=== PATIENT | male | born 1955 | race Caucasian/White ===

== ENCOUNTER 2024-09-27 13:06 | Inpatient (IN) | payer OTHER, SELFPAY ==
[2024-09-27] VITALS (7 sets, daily range): BP systolic 145–195; BP diastolic 90–114; PULSE 79–97; RESP 16–98; TEMP 36.1–37.1; O2SAT 96–97
--- NOTE | 2024-09-27 | XR_ITS ---
Examinations: MRI Brain without intravenous contrast. MRA brain without intravenous contrast. MRA carotids without intravenous contrast 3-D vascular reconstructions Date and time of exam: September 27, 2024 0631 hours INDICATIONS: Stroke alert September 27, 2024, onset focal neurologic deficit Technique: Multiple axial and sagittal images of the brain have been obtained MRA brain carotid images without contrast obtained, including 3-D postprocessing, vascular maximum intensity projection images Findings: Sellaturcica is not enlarged. The optic chiasm and infundibular stalk are not remarkable. Prepontine and interpeduncular cisterns are not enlarged. No localized enlargement of the medulla or norma. Fourth ventricle and cerebellar tonsils normal in position. Subacute hemorrhage is not seen. Fourth ventricle is midline. Mass in the cerebellopontine angle region is not evident. 7th and 8th nerve complexes exhibits symmetry. Globes are symmetrical with no retro-orbital mass. Increased white matter signal prominent Diffusion-weighted images demonstrate 18 mm focus restricted diffusion left parietal lobe with matching signal deficit on the ADC map Mass-effect upon the ventricular system is not identified. MRA brain images no large vessel occlusions Impression: 18 mm acute infarct left parietal lobe
--- NOTE | 2024-09-27 13:17 | PD.EDWEAK ---
ED Weakness RME/HPI General Chief complaint: Weakness Stated complaint: Right facial droop right arm weakness Time Seen by Provider: 09/27/24 13:18 Arrival date/time: 09/27/24 13:06 Limitations: no limitations RME / HPI RME / HPI Narrative: 68 year old male who is s/p right ORIF otherwise no other chronic medical history, right hand dominant, presents to the ED for evaluation of right-sided upper/lower extremity weakness and right facial numbness today. States he first noticed the symptoms around 8:15 AM while reaching for toilet paper in the restroom and having difficulty grasping it, lasting 45 minutes. Denies any change in balance or speech. Denies any history of similar symptoms. Related Data Allergies Allergy/AdvReac Type Severity Reaction Status Date / Time No Known Drug Allergies Allergy Verified 09/27/24 13:09 Review of Systems Review of Systems Systems Reviewed: All systems reviewed, normal except as documented Past Medical History Past Medical History CARDIAC: Negative Congestive Heart Failure RESPIRATORY: Negative Chronic Obstructive Pulmonary Disease (COPD) GENITOURINARY: Negative Renal Disease ENDOCRINE: Negative Diabetes Mellitus Type 1 or Diabetes Mellitus Type 2 Family History FAMILY HISTORY: Positive Family Cardiac Disorders and Family Endocrine Disorders; Negative Family Cancer Social History SMOKING STATUS: Former smoker ED Exam General Limitations: Present no limitations General appearance: Present alert and in no apparent distress Head Head exam: Present atraumatic and normocephalic Eye Eye exam: Present normal appearance, PERRL and EOMI ENT ENT exam: Present normal exam, normal oropharynx and mucous membranes moist Neck Neck exam: Present normal inspection, full ROM and trachea midline Chest Chest inspection: Present normal inspection and symmetric chest wall rise Respiratory Respiratory exam: Present normal lung sounds bilaterally Cardiovascular Cardiovascular exam: Present regular rate, normal rhythm and normal heart sounds Abdominal Exam Abdominal exam: Present soft and normal bowel sounds Extremities Exam Extremities exam: Present normal inspection and full ROM Back Exam Back exam: Present normal inspection and full ROM Neurological Exam Neurological exam: Present alert, oriented X3 and other (mild right facial droop ) Psychiatric Psychiatric exam: Present normal affect and normal mood Skin Skin exam: Present warm, dry, intact and normal color Course Quality Measures Suspected type of Stroke: Non Acute Last known well (date): 09/27/24 Last known well (time): 08:15 Tenecteplase given: Reason(s) TPA not given: Outside the time window not given stroke Orders Category Date Time Status Bedside Blood Glucose NOW Care 09/27/24 13:18 Active COVID-19 Screening Questionnaire NOW Care 09/27/24 15:23 Active Facility Designer NOW Care 09/27/24 13:18 Active Continuous Pulse Oximetry NOW Care 09/27/24 13:18 Completed Decision to Admit X1 Care 09/27/24 15:23 Active EKG (ED ONLY) *Do not use* NOW Care 09/27/24 13:18 Completed In and Out Catheter NEEDED Care 09/27/24 13:18 Active Insert IV NOW Care 09/27/24 13:18 Active NIH Stroke Scale now Care 09/27/24 13:18 Active NPO NOW Care 09/27/24 13:18 Active Neuro Check Q15MIN Care 09/27/24 13:18 Active Nurse Swallow Screen x1 Care 09/27/24 13:18 Active Consult to Neurology / Tele-Neurology Routine Cons 09/27/24 13:[address] angio stroke protocol Stat Exams 09/27/24 13:[address] stroke protocol Stat Exams 09/27/24 13:18 Completed EKG (ED Only) Stat Exams 09/27/24 13:18 Draft Alcohol, Blood Medical Stat Lab 09/27/24 13:22 Completed B-Type Natriuretic Peptide Stat Lab 09/27/24 13:22 Completed CBC Stat Lab 09/27/24 13:22 Completed Comprehensive Metabolic Panel Stat Lab 09/27/24 13:22 Completed Drug Screen,Urine Stat Lab 09/27/24 14:06 Completed Magnesium Stat Lab 09/27/24 13:22 Completed Partial Thromboplastin Time Stat Lab 09/27/24 13:22 Completed Prothrombin Time with INR Stat Lab 09/27/24 13:22 Completed Troponin I Stat Lab 09/27/24 13:22 Completed Urinalysis Stat Lab 09/27/24 14:06 Completed Urine Culture Stat Lab 09/27/24 14:06 Received Aspirin [Ecotrin] Med 09/27/24 15:01 Discontinued 162 mg PO X1 ONE Clopidogrel [Plavix] Med 09/27/24 15:01 Discontinued 300 mg PO X1 ONE Ondansetron Inj [Zofran Inj] Med 09/27/24 13:18 Active 4 mg IVP Q4HR PRN Sodium Chloride 0.9% 1000 ml [Ns] 1,000 ml Med 09/27/24 13:30 Active IV Q10H Oxygen Delivery NOW RT 09/27/24 13:18 Active Vital Signs Vital signs: Vital Signs Temperature 98.8 F 09/27/24 13:14 Pulse Rate 97 09/27/24 13:14 Respiratory Rate 18 09/27/24 13:14 Blood Pressure 195/107 H 09/27/24 13:14 Pulse Oximetry (%) 97 09/27/24 13:14 Oxygen Delivery Method Room Air 09/27/24 13:14 Pulse ox is 97% on room air which is adequate. Weakness MDM Narrative MDM Narrative:: Crystal Peterson am scribing for and in the presence of Dr. Andrade. Patient data External records reviewed:: None (No previous ED visits for review ) Clinical information provided by:: patient Social determinants that could affect healthcare access:: none Patient has the following chronic illnesses:: No chronic medical hx reported How is presenting disease/condition affected by chronic disease/condition?: no chronic disease Evaluation data The following diagnostics were reviewed and interpreted by me:: lab results, radiology exam(s) and EKG tracing(s) (09/27/2024 @ 14:03h. NSR, rate 83, left anterior fascicular block, no STEMI. ) Lab and/or radiology exams considered but not ordered:: None Interpretation Summary: Ordering Physician: Leandro Andrade MD Date of Service: 09/27/24 Procedure(s): CT stroke protocol Accession Number(s): [id number] cc: Leandro Andrade MD; Mariano Chavez MD~ Examination: CT brain head without contrast. 2-D sagittal coronal reconstructions Date and time of exam:September 27, 2024 1328 hours INDICATIONS: Stroke alert, onset focal neurologic deficit right-sided facial numbness and right-sided body weakness beginning 8:30 AM this morning CTDI: vol (mGy):7.9 DLP: (mGycm):973 Technique: Multiple CT axial sections of the brain have been obtained, 5 mm slice thickness. Contrast has not been administered. 2-D sagittal, coronal reconstructions have been obtained Low dose protocols were performed. One or more of the following dose reduction techniques were used; automated exposure control, adjustment of the mA and/or KV according to patient size, use of iterative reconstruction technique. Findings: No significant ventricular enlargement. Intra-axial or extra-axial hemorrhage density is not seen. No mass effect or midline shift Basal cisterns are not remarkable. Fourth ventricle is midline. Cranial vault intact. Impression: Negative for acute hemorrhage, mass effect or midline shift Dictated By: Mariano Chavez MD Signed By: <Electronically signed by Mariano Chavez MD in OV> 09/27/24 1331 Ordering Physician: Leandro Andrade MD Date of Service: 09/27/24 Procedure(s): CT angio stroke protocol Accession Number(s): [id number] cc: Leandro Andrade MD; Mariano Chavez MD~ Examination: CTA carotids with intravenous contrast CTA brain, head with intravenous contrast. 2-D sagittal, coronal reconstructions. 3-D reconstructions. Exam date and time: September 25, 2024 1331 hours INDICATIONS: Stroke alert, onset right-sided facial weakness and right-sided body and facial numbness today beginning 8:30 AM CTDI: vol (mGy) 21.1 DLP: (mGycm) 171 Technique: Multiple CTA axial brain, head carotid images post intravenous contrast injection 100 cc, [id number]. 2-D sagittal, coronal reconstructions. 3-D reconstructions, 3-D post processing including vascular maximum intensity projection images. Low dose protocols were performed. One or more of the following dose reduction techniques were used; automated exposure control, adjustment of the mA and/or KV according to patient size, use of iterative reconstruction technique. Findings: No significant common carotid carotid bifurcation or internal carotid artery stenoses Minimally dominant left vertebral artery with no critical stenoses Intracranial vertebral arteries basilar artery posterior cerebral artery branches do fill Juxtasellar supraclinoid portions internal carotid arteries, M1 segments middle cerebral arteries middle cerebral artery trifurcation vessels as well as anterior cerebral arteries fill with no large vessel occlusions IMPRESSION: No significant neck arterial stenoses No cerebral large vessel arterial occlusions or thrombus Dictated By: Mariano Chavez MD Signed By: <Electronically signed by Mariano Chavez MD in OV> 09/27/24 1402 Medications / Prescriptions Medications or Prescriptions considered but not ordered:: None Medication administrations:: Medication Administration History Sodium Chloride (Ns) 1,000 mls @ 60 mls/hr IV Q10H RYAN Stop: 10/27/24 13:29 Last Admin: 09/27/24 14:16 Dose: 60 mls/hr Documented By: GM Ondansetron HCl (Ondansetron Inj 2 Mg/Ml Inj 2 Ml) 4 mg IVP Q4HR PRN PRN Reason: NAUSEA OR VOMITING Stop: 10/27/24 13:17 Discontinued Medications Aspirin (Aspirin Ec 81 Mg Tabec) 162 mg PO X1 ONE Stop: 09/27/24 15:02 Clopidogrel Bisulfate (Clopidogrel Bisulfate 75 Mg Tablet) 300 mg PO X1 ONE Stop: 09/27/24 15:02 See above Consultations Consultation(s) initiated? (list below): Yes Consultation #1 (Physician, Specialty, Details): I spoke with teleneurologist Dr. Jackson, states patient is not a TNK candidate at this time, LKWT > 4.5 hours. Time: 14:42 Diagnosis Weakness Differential Diagnosis: hypoglycemia, sepsis and dehydration Most likely diagnosis given after review of the tests above:: Acute CVA Accelerated hypertension Admission Indicated Admission indicated?: indicated Admission Request Was there a request for admission?: Yes Admission Attestation Admission request attestation: Discussed case with [] from Hospitalist service regarding admission. Discussed patients ED course, exam findings, labs, and radiology results. The Hospitalist [agrees,declines] to accept the patient for admission. Disposition Plan Disposition Plan: Admit Critical Care Time Critical Care Time Critical Care Time: Yes Total Critical Care Time (min.): 35 Attestation: The high probability of sudden, clinically significant deterioration in the patient's condition required the highest level of my preparedness to intervene urgently. The services I provided to this patient were to treat and/or prevent clinically significant deterioration. Services included the following: chart data review, reviewing nursing notes and/or old charts, documentation time, training consultant collaboration regarding findings and treatment options, medication orders and management, direct patient care, vital sign assessments and ordering, interpreting and reviewing diagnostic studies and lab tests. Aggregate critical care time includes only time during which I was engaged in work directly related to the patient's care, as described above, whether at bedside or elsewhere in the Emergency Department. It did not include time spent performing other reported procedures or the services of residents, students, nurses or physician assistants. Discharge Plan Plan Patient Disposition: Admit Acute Care w/in Hospital Prescriptions/Referrals Referrals: No Primary/Family,Physician [Primary Care Provider] - In 1 week Problem List Clinical Impression: Acute cerebrovascular accident (CVA), Accelerated hypertension Patient/Caregiver Discharge Instructions Print Language: Tristanian Stand Alone Forms: Oksana Award Info., Patient Portal Info Letter
--- NOTE | 2024-09-27 13:18 | EKG_ITS ---
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
[2024-09-27 13:41] LABS: Basophils # (Auto) 0.0 Thou/mm3 (0.0-0.2); Basophils % (Auto) 1 % (0-2.5); Eosinophils # (Auto) 0.1 Thou/mm3 (0.0-0.5); Eosinophils % (Auto) 1 % (0-10); Hematocrit 45.5 % (41.0-53.0); Hemoglobin 15.3 g/dL (13.5-16.0); Immature Granulocytes Auto 0.02 Thou/mm3 (0.00-0.00); Lymphocytes # (Auto) 2.0 Thou/mm3 (1.0-4.8); Lymphocytes % (Auto) 25 % (10-50); Mean Corpuscular HGB Conc 33.6 g/dl (31.0-37.0); Mean Corpuscular Hemoglobin 31.2 pg (25.0-35.0); Mean Corpuscular Volume 93 fL (80-100); Monocytes # (Auto) 0.4 Thou/mm3 (0.0-0.8); Monocytes % (Auto) 5 % (0-12); Neutrophils # (Auto) 5.2 Thou/mm3 (1.8-7.7); Neutrophils % (Auto) 68 % (37-80); Nucleated Red Blood Cell # 0.00 Thou/mm3 (0.00-0.00); Nucleated Red Blood Cell % 0 /100 WBC (0); Platelet Count 270 Thou/mm3 (140-440); RDW Standard Deviation 46.2 fL (35.1-43.9); Red Blood Count 4.90 Miln/mm3 (4.50-5.90); White Blood Count 7.7 Thou/mm3 (3.8-10.6)
[2024-09-27 13:55] LABS: INR 1.0 (0.9-1.3); Partial Thromboplastin Time 27.1 Seconds (22.0-36.0); Prothrombin Time 11.2 Seconds (9.0-12.2)
[2024-09-27 13:58] LABS: B-Type Natriuretic Peptide 56 pg/mL (0-100)
[2024-09-27 14:13] LABS: Alanine Aminotransferase 19 U/L (10-49); Albumin, Serum 4.5 gm/dL (3.4-4.8); Albumin/Globulin Ratio 1.9 (1.2-2.2); Alcohol, Blood Medical < 3.0 mg/dL (0-10.0); Alkaline Phosphatase 68 U/L (46-116); Anion Gap 13 (7-16); Aspartate Amino Transferase 18 U/L (0-34); BUN/Creatinine Ratio 10 Ratio (12-20); Bilirubin,Total 1.0 mg/dL (0.3-1.2); Blood Urea Nitrogen 7 mg/dL (9-23); Calcium 10.0 mg/dL (8.3-10.6); Calcium (Corrected) 10.0 mg/dL (8.5-10.1); Carbon Dioxide 23.4 mMol/L (20.0-31.0); Chloride 105 mMol/L (98-107); Creatinine (Component) 0.7 mg/dL (0.6-1.3); Globulin 2.4 gm/dL (2.3-3.5); Glucose 123 mg/dL (74-106); Magnesium 1.7 mg/dL (1.6-2.6); Osmolality,Calculated 280 (275-295); Potassium 3.6 mMol/L (3.4-5.1); Sodium 141 mMol/L (136-145); Total Protein 6.9 gm/dL (5.7-8.2); Troponin I < 0.020 ng/mL (0.0-0.045); eGFR > 60 See Note
[2024-09-27] MEDS: SODIUM CHLORIDE 0.9% 1000 ML 1,000 ML 60 ML IV (14:16)
[2024-09-27 14:17] LABS: Collection Type, Urine Catheter; Squamous Epithelial Cell,Urine 0 /hpf (0-5)
[2024-09-27 14:29] LABS: Amphetamine/Methamp Scrn,U Negative (Negative); Barbiturate Screen,Urine Negative (Negative); Benzodiazepines Screen,Urine Negative (Negative); Benzoylecgonine Screen, Ur Negative (Negative); Fentanyl Screen,Urine Negative (Negative); Opiate Screen,Urine Negative (Negative); THC Screen,Urine Negative (Negative)
--- NOTE | 2024-09-27 14:43 | PD.TNEURO ---
Tele Neuro Consultation Consultation Date 09/27/24 Most Recent Vital Signs Last Vital Signs Temp 98.8 F 09/27/24 13:14 Pulse 94 09/27/24 13:46 Resp 19 09/27/24 13:46 BP 195/107 H 09/27/24 13:14 Pulse Ox 97 09/27/24 13:14 O2 Del Method Room Air 09/27/24 13:14 Laboratory-Coagulation Panel PT 11.2 Seconds (9.0-12.2) 09/27/24 13:22 INR 1.0 (0.9-1.3) 09/27/24 13:22 APTT 27.1 Seconds (22.0-36.0) 09/27/24 13:22 Consultation Narrative [facility] Tele[facility]urology Consult [facility] Patient Name:???jessica ely Date of :???1955 Date of Service:???09/27/2024 13:28:47 Diagnosis:?R29.810 - Facial numbness/ Facial weakness Impression: ?Patient is a 68-year-old male with unclear past medical history is being evaluated for concerns of right-sided weakness. ? ?Presents with an acute onset of right upper extremity/face weakness. Last well-known is a 10 AM this morning. ?On exam there is mild right-sided facial droop at rest which resolves when the muscles are engaged. Mild right-sided pronator drift noticed. ?Head CT read is unremarkable for any acute intracranial findings. ? ?Suspicion is for an acute ischemic event involving the left frontoparietal lobe. ?Last well-known greater than 4-1/2 hours, patient is not an IV thrombolytic candidate. ?Loaded with aspirin 325 mg, Plavix 300 mg. ?Allow permissive hypertension up to a systolic of 220. ?Please obtain MRI brain without contrast. Our recommendations are outlined below. Recommendations: ? Stroke/Telemetry Floor ? Neuro Checks ? Bedside Swallow Eval ? DVT Prophylaxis ? IV Fluids, Normal Saline ? Head of Bed 30 Degrees ? Euglycemia and Avoid Hyperthermia (PRN Acetaminophen) ? Initiate or continue Aspirin 325 MG daily ? Bolus with Clopidogrel 300 mg bolus x1 and initiate dual antiplatelet therapy with Aspirin 81 mg daily and Clopidogrel 75 mg daily ? Antihypertensives PRN if Blood pressure is greater than 220/120 or there is a concern for End organ damage/contraindications for permissive HTN. If blood pressure is greater than 220/120 give labetalol PO or IV or Vasotec IV with a goal of 15% reduction in BP during the first 24 hours. ?Suspicion is for an acute ischemic event involving the left frontoparietal lobe. ?Last well-known greater than 4-1/2 hours, patient is not an IV thrombolytic candidate. ?Loaded with aspirin 325 mg, Plavix 300 mg. ?Allow permissive hypertension up to a systolic of 220. ?Please obtain MRI brain without contrast. Sign Out: ? Discussed with Emergency Department Provider Advanced Imaging:CTA Head and Neck Completed. LVO:No Patient is not a candidate for EMILIANA Metrics: Last Known Well: 09/27/2024 08:10:00 Dispatch Time: 09/27/2024 13:28:47 Arrival Time: 09/27/2024 13:31:15 Initial Response Time: 09/27/2024 13:35:43Symptoms: R sided facial droop / arm weakness. Initial patient interaction: 09/27/2024 13:43:36 NIHSS Assessment Completed: 09/27/2024 13:50:24Patient is not a candidate for Thrombolytic. Thrombolytic Medical Decision: 09/27/2024 13:55:33Patient was not deemed candidate for Thrombolytic because of following reasons: LKW outside 4.[address] Head: CT head unremarkable for acute infarction or hemorrhage per Radiology: report reviewed Primary Provider Notified of Diagnostic Impression and Management Plan on: 09/27/2024 14:42:34 History of Present Illness:Patient is a 68 year old Male. Patient was brought by private transportation with symptoms of R sided facial droop / arm weakness. Patient is a 68-year-old male with unclear past medical history is being evaluated for concerns of right-sided weakness. Patient mentions that he was seemingly normal when he woke up at 615 this morning. At around 8 AM he was drinking his coffee with his right hand and he did not notice any weakness. At around 8:15 AM when he was trying to cotton picker something in the restroom he noticed that his right hand is weak. And he was dropping. At that time his family also noticed that his face looked asymmetric. He states that he has a history of migraines. 2 weeks back he noticed that the left side of his vision got blacked out. Slowly returned. However he is still saying that there is 1 part in his field of vision which appears missing. ? Past Medical History: ?There is no history of Hypertension ?There is no history of Diabetes Mellitus ?There is no history of Atrial Fibrillation Medications: No Anticoagulant use? No Antiplatelet use Reviewed EMR for current medications Allergies:? Description:?As per chart Social History: Smoking: No Family History: There is no family history of premature cerebrovascular disease pertinent to this consultation ROS : 14 Points Review of Systems was performed and was negative except mentioned in HPI. Past Surgical History: There Is No Surgical History Contributory To Today?s Visit ? Examination: BP(195/107),?Pulse(98),?Blood Glucose(123) 1A: Level of Consciousness - Alert; keenly responsive?+ 0 1B: Ask Month and Age - Both Questions Right?+ 0 1C: Blink Eyes & Squeeze Hands - Performs Both Tasks?+ 0 2: Test Horizontal Extraocular Movements - Normal?+ 0 3: Test Visual Ng - No Visual Loss?+ 0 4: Test Facial Palsy (Use Grimace if Obtunded) - Minor paralysis (flat nasolabial fold, smile asymmetry)?+ 1 5A: Test Left Arm Motor Drift - No Drift for 10 Seconds?+ 0 5B: Test Right Arm Motor Drift - Drift, but doesn't hit bed?+ 1 6A: Test Left Leg Motor Drift - No Drift for 5 Seconds?+ 0 6B: Test Right Leg Motor Drift - No Drift for 5 Seconds?+ 0 7: Test Limb Ataxia (FNF/Heel-Hooper) - No Ataxia?+ 0 8: Test Sensation - Normal; No sensory loss?+ 0 9: Test Language/Aphasia - Normal; No aphasia?+ 0 10: Test Dysarthria - Normal?+ 0 11: Test Extinction/Inattention - No abnormality?+ 0 NIHSS Score:?2 Pre-Morbid Modified [place] Scale:1 Points = No significant disability despite symptoms; able to carry out all usual duties and activities Spoke with :?ED Provider This consult was conducted in real time using interactive audio and video technology. Patient was informed of the technology being used for this visit and agreed to proceed. Patient located in hospital and provider located at home/office setting. Patient is being evaluated for possible acute neurologic impairment and high probability of imminent or life-threatening deterioration. I spent total of 39 minutes providing care to this patient, including time for face to face visit via telemedicine, review of medical records, imaging studies and discussion of findings with providers, the patient and/or family. Dr Rei Jackson [facility] For Inpatient follow-up with [facility] physician please call [facility] at . As we are not an outpatient service for any post hospital discharge needs please contact the hospital for assistance. If you have any questions for the [facility] physicians or need to reconsult for clinical or diagnostic changes please contact us via [facility] at . Signature :John Jackson ?
[2024-09-27 15:17] LABS: Bilirubin,Urine Negative (Negative); Blood,Urine Negative (Negative); Clarity,Urine Clear (Clear/Hazy); Color,Urine Colorless (Lt Yel-Yel); Glucose, Urine Negative (Negative); Ketones,Urine 1+ (Negative); Leukocyte Esterase,Urine Negative (Negative); Nitrite,Urine Negative (Negative); PH,Urine 7.0 (5.0-7.0); Protein,Urine Negative (Neg - Trace); RBC,Urine 1 /hpf (0-3); Specific Gravity,Urine 1.046 (1.001-1.035); Urobilinogen,Urine Negative mg/dL (0.0-1.0); WBC,Urine < 1 /hpf (0-5)
--- NOTE | 2024-09-27 15:58 | ECHO_ITS ---
Transthoracic Echo Report Ht (in): 67 Wt (lb): 197 Exam Location: Echo Lab Status: Emergency Cath Lab Nurse: Florence Bermudez Indications: Procedure Performed: BP: 175 / 100 HR: 99 MEASUREMENTS (Male / Female) Normal Values 2D ECHO LV Diastolic Diameter PLAX 4.9 cm 4.2 - 5.9 / 3.9 - 5.3 cm LV Systolic Diameter PLAX 3.6 cm IVS Diastolic Thickness 1.0 cm 0.6 - 1.0 / 0.6 - 0.9 cm LVPW Diastolic Thickness 1.5 cm 0.6 - 1.0 / 0.6 - 0.9 cm LV Relative Wall Thickness 0.5 LVOT Diameter 2.1 cm LA Volume Index 30.2 cm?/m? 16 - 28 cm?/m? Ascending Aorta Diameter 3.2 cm M-MODE AV Cusp Separation MM 1.5 cm DOPPLER AV Peak Velocity 133.0 cm/s AV Peak Gradient 7.1 mmHg AV Mean Gradient 4.0 mmHg AV Velocity Time Integral 26.9 cm AI Peak Velocity 299.0 cm/s AI Peak Gradient 35.8 mmHg AI Pressure Half Time 955.0 ms LVOT Peak Velocity 88.3 cm/s LVOT Peak Gradient 3.1 mmHg LVOT Velocity Time Integral 19.4 cm LVOT Cardiac Index 3194.0 cm?/min?m? AV Area Cont Eq vti 2.5 cm? AV Area Cont Eq pk 2.3 cm? MV Area PHT 4.7 cm? Mitral E Point Velocity 46.0 cm/s Mitral A Point Velocity 75.2 cm/s Mitral E to A Ratio 0.6 LV E' Lateral Velocity 12.0 cm/s Mitral E to LV E' Lateral Ratio 3.8 LV E' Septal Velocity 5.9 cm/s Mitral E to LV E' Septal Ratio 7.8 TR Peak Velocity 155.0 cm/s TR Peak Gradient 9.6 mmHg PV Peak Velocity 109.0 cm/s PV Peak Gradient 4.8 mmHg FINDINGS Left Ventricle Normal left ventricular size, wall thickness, systolic function with no obvious regional wall motion abnormalities. There is grade I diastolic dysfunction of the left ventricle (impaired relaxation pattern). The ejection fraction is visually estimated at 55--60%. Right Ventricle The right ventricle is normal in size and systolic function. The estimated right ventricular systolic pressure, 12 mmHg. Left Atrium The left atrial cavity size is mildly increased. Right Atrium The right atrium is normal by two-dimensional imaging, color flow and Doppler imaging with no structural abnormalities, no thrombus formation present. Atrial Septum The interatrial septum appears normal with no evidence of a shunt. Aorta The aorta is normal by two-dimensional, color flow and Doppler interrogation. Mitral Valve The mitral valve is normal by two-dimensional, color flow and Doppler interrogation. Mild mitral regurgitation. Aortic Valve The aortic valve is trileaflet and normal by two-dimensional, color flow and Doppler interrogation. Mild aortic valve regurgitation. Tricuspid Valve The tricuspid valve is normal by two-dimensional, color flow and Doppler interrogation. There is mild tricuspid valve regurgitation. Pulmonic Valve The pulmonic valve is not well visualized. There is no significant pulmonic valve regurgitation. Vessels The pulmonary artery appears normal. The inferior vena cava pulmonary and hepatic veins appear normal. Pericardium The pericardium is normal by two-dimensional imaging. There is no significant pericardial effusion. CONCLUSIONS Indication: CVA workup Normal LV function and size. Grade I diastolic dysfunction Estimated EF 55-60% RV normal size and function Mild MR, AR, TR LA mildly dilated. Micha Toscano (Electronically Signed) Final Date: 29 September 2024 08:24
--- NOTE | 2024-09-27 16:08 | ESHP_ITS ---
<Statement entered by Ace Umana MD - 09/27/24 20:08> Patient was seen and examined at bedside. I agree on the assessment and plan on this note as documented by resident Stefan Valdez DO PGY1. 68-year-old male with past medical history of migraines who presented to [facility] emergency department on September 27, 2024 with a chief complaint of right-sided weakness in upper extremity and right-sided facial droop. Patient does report history of complex migraines, has never been seen by a neurologist or received MRI outpatient. Patient reported that he recently took Zyrtec causing him to have migraine about 2 weeks ago and left side of his vision, blacked out. Reported that earlier this morning he had right upper extremity weakness and right-sided facial droop. Patient took 2 baby aspirin this morning after having these episodes, patient was seen by teleneuro in ED, recommended MRI due to concern of underlying frontal parietal lobe ischemic event, patient initially hesitant for admission eventually agreed. CT scan of head and CTA head and neck were negative, patient given aspirin 162 and loading dose Plavix started on aspirin and Plavix daily per teleneurology recommendations, patient started on Lipitor, n.p.o. pending bedside nurse swallow ordered physical therapy and speech therapy referral. Will allow permissive hypertension for 24 hours. In-house neurology consulted appreciate recommendations disposition telemetry pending CVA workup. Case discussed with attending Dr. Michelle Christianson MD Internal Medicine PGY-2 Documentation for date of: 09/27/24 HPI History of Present Illness Chief complaint: RUE weakness History of present illness: Mr. Baez is a 68-year-old male with a past medical history of migraines who presented to [facility] ED on 09/27 with complaints of right-sided weakness and right facial droop. The patient was admitted for CVA workup. The patient symptoms began at around 8 AM this morning. Initially began with acute right-sided weakness in arms with right facial droop and numbness in his right lip. Symptoms then started to recover after about an hour, so the patient went about his day as usual. However, the patient had another episode of right- sided weakness in his arms and right facial droop with numbness in his right lip at around 10 or 10:30 AM, but it was not as severe as the initial episode. Over time, his right-sided weakness has been improving. The patient states that his right doper operator strength has returned to normal while he was waiting in the ED. Patient believes that this might be possibly a complex migraine, however he has never had a migraine like this in the past and was not actively having a migraine during these episodes. Patient denies any headache during these episodes. Patient does endorse an electrical feeling in his right vision, which he describes as neither blurry vision nor floaters in his vision. Due to the patient's having her birthday tomorrow, the patient would like to leave tonight or early tomorrow. Patient does endorse episodes of skipped heartbeats, but has never sought care from a clinical psychologist licensed. Patient denies history of atrial fibrillation. Patient denies any history of hypertension, but does note he has a history of whitecoat syndrome during doctor visits. Patient's most recent pressure readings prior to today were noted to be around the 130s/80s. Patient denies headache, changes in hearing, changes in vision, shortness of breath, cough, chest pain, abdominal pain. Patient took 2 baby aspirin this morning after having these episodes ED course: On admission, patient had a blood pressure of 195/107. Troponin negative. BNP 56. Urinalysis significant for increased specific gravity and 1+ ketones. Urine toxicology negative and blood alcohol less than 3.0. Urine culture collected. Teleneurology was consulted. Recommended CT head and CTA head/neck, both of which were negative for acute stroke. Patient not candidate for thrombolytic therapy due to being outside 4.5-hour window for last known well. Past Surgical History: R ORIF Current Medication(s): N/A Allergies (w/ Reactions): NKDA Family History: - Mother:?T2DM, heart attacks - Father:?Aortic aneurysm - Siblings:?Breast cancer (sibling) Occupation:?Retired Alcohol Intake:?1 drink nightly Tobacco/Vape Use:?Quit 50 years ago, smoked unspecified amount for 2 years Other Drug Use:?Patient denies Recent Travel History:?[place] 1 month ago Review of Systems Review of Systems Systems Reviewed: All systems reviewed, normal except as documented Exam Vital Signs Temp Pulse Resp BP Pulse Ox O2 Del Method 98.6 F 79 16 170/114 H 96 Room Air 09/27/24 15:18 09/27/24 15:18 09/27/24 15:18 09/27/24 15:18 09/27/24 15:18 09/27/24 15:18 Narrative Exam Physical Exam: General: Alert, no acute distress.?? Skin: Warm, dry, intact, no obvious rash.?? Head: Normocephalic, atraumatic.?? Eye: Normal conjunctiva, PERRL. Throat: Oral mucosa dry. Cardiovascular: Regular rate and regular rhythm, palpitations noted, no murmur, normal peripheral perfusion, no edema. Respiratory: Lungs are clear to auscultation, respirations non labored, no crackles, no wheezing. Gastrointestinal: Soft, nontender, non-distended. Psychiatric: Cooperative, appropriate affect. Neuro:? Mental status: Alert, oriented, appropriately responding to commands. Speech/Language: Speech fluent, no word finding difficulty or paraphasic errors observed. Language-comprehension, repetition and naming intact. No dysarthria noted. Memory: Grossly recent and remote intact. Cranial Nerves:? ?II: No visual deficits and visual bradford full to confrontation. Pupils 3-5 mm size BL round, reactive to light. ?III, IV, : EOMI, no nystagmus, no ptosis, no APD, smooth pursuit without saccadic intrusion, conjugate horizontal gaze intact. ?V: Gross sensation intact in V1, V2 and V3 distribution to crude touch. Jaw strength normal. ?VII: Right sided facial droop at rest, able to smile symmetrically and BL good eye closure. ?VIII: Hearing intact in both ears per finger rubbing. ?IX, X: Symmetrical palate elevation, uvula in midline. ?XI: Symmetrical shoulder shrug. ?IX, XII: Midline tongue protrusion. No fasciculations or atrophy noted. Sensory examination Crude touch in bilateral upper and lower extremity grossly intact. Motor examination No drift in bilateral upper extremity 5/5 strength in bilateral upper extremity 5/5 strength in bilateral lower extremity 2+ reflexes in biceps, triceps, brachioradialis, patellar Coordination [id number] test performed without any difficulty. No dysmetria. Results: Labs 09/28/24 04:49 09/28/24 04:49 Labs: Short CBC 09/27/24 Range/Units 13:22 WBC 7.7 (3.8-10.6) Thou/mm3 Hgb 15.3 (13.5-16.0) g/dL Hct 45.5 (41.0-53.0) % Plt Count 270 (140-440) Thou/mm3 BMP 09/27/24 13:22 Sodium 141 Potassium 3.6 Chloride 105 Carbon Dioxide 23.4 BUN 7 L Creatinine 0.7 Glucose 123 H Calcium 10.0 Cardiac Enzymes 09/27/24 Range/Units 13:22 Troponin I < 0.020 (0.0-0.045) ng/mL Liver Function 09/27/24 Range/Units 13:22 Total Bilirubin 1.0 (0.3-1.2) mg/dL AST 18 (0-34) U/L ALT 19 (10-49) U/L Alkaline Phosphatase 68 (46-116) U/L Albumin 4.5 (3.4-4.8) gm/dL Urine 09/27/24 Range/Units 14:06 Urine Color Colorless A (Lt Yel-Yel) Urine Clarity Clear (Clear/Hazy) Urine pH 7.0 (5.0-7.0) Ur Specific [place] 1.046 H (1.001-1.035) Urine Protein Negative (Neg - Trace) Urine Glucose (UA) Negative (Negative) Quality Measures Quality Measures stroke Suspected type of Stroke: Non Acute Last known well (date): 09/27/24 Last known well (time): 08:15 Tenecteplase given: Reason(s) Tenecteplase not given: Outside the time window not given Rehab services: PT evaluation ordered and Speech Language Pathology eval ordered VTE Prophylaxis: pharmaceutical Antithrombotic by day 2:: ordered Statin ordered: <75 y/o high intensity dose Anticoagulation ordered for A-fib or flutter (current or hx): not indicated Advance care planning discussed with:: patient and child Medications Home Medications and Allergies Allergies Allergy/AdvReac Type Severity Reaction Status Date / Time No Known Drug Allergies Allergy Verified 09/27/24 13:09 Visit Medications Acetaminophen (Acetaminophen 325 Mg Tablet) 650 mg PO Q6H PRN PRN Reason: Fever >101.5 or pain (1-3) Stop: 10/27/24 15:55 Aspirin (Aspirin Ec 81 Mg Tabec) 81 mg PO QDAY [facility] Stop: 10/28/24 08:59 Clopidogrel Bisulfate (Clopidogrel Bisulfate 75 Mg Tablet) 75 mg PO QDAY [facility] Stop: 10/28/24 08:59 Heparin Sodium (Porcine) (Heparin Sod Inj 5000 Unit/Ml Vial) 5,000 unit SC Q12HR [facility] Stop: 10/11/24 15:59 Sodium Chloride (Ns) 1,000 mls @ 75 mls/hr IV .[id number] [facility] Stop: 09/28/24 05:24 Labetalol HCl (Labetalol Inj 5 Mg/Ml Vial 20 Ml) 10 mg IVP Q6H PRN PRN Reason: SBP > 220 or DBP > 120 Ondansetron HCl (Ondansetron Inj 2 Mg/Ml Inj 2 Ml) 4 mg IVP Q4HR PRN PRN Reason: NAUSEA OR VOMITING Stop: 10/27/24 13:17 Discontinued Medications Aspirin (Aspirin Ec 81 Mg Tabec) 162 mg PO X1 ONE Stop: 09/27/24 15:02 Last Admin: 09/27/24 16:08 Dose: Not Given Aspirin (Aspirin 325 Mg Tablet) 325 mg PO X1 ONE Stop: 09/27/24 16:02 Clopidogrel Bisulfate (Clopidogrel Bisulfate 75 Mg Tablet) 300 mg PO X1 ONE Stop: 09/27/24 15:02 Sodium Chloride (Ns) 1,000 mls @ 60 mls/hr IV Q10H [facility] Stop: 10/27/24 13:29 Last Admin: 09/27/24 14:16 Dose: 60 mls/hr Assessment & Plan Plan Mr. Baez is a 68-year-old male with a past medical history of migraines who presented to [facility] ED on 09/27 with complaints of right-sided weakness and right facial droop. The patient was admitted for CVA workup. #CVA workup #RUE weakness #Right sided facial droop Patient had weakness in right arm and right facial droop at 0800 and 1000 on 09/27. These episodes were accompanied by right-sided numbness around his lips. The first episode seemed to be more severe compared to the first, but the patient had resolution of symptoms within about an hour after the first episode. After the second episode, symptoms were less severe, but lasted for several hours. ED consulted teleneurology, who did CT head without contrast and CTA head and neck, which were negative for acute strokes and large vessel occlusions. The patient took 2 baby aspirin this morning, so ED gave patient 162 mg of aspirin for loading dose. - Neurology consulted, appreciate recommendations - MRI head without contrast ordered, pending - Echocardiogram with bubble study ordered, pending - Plavix 75 mg daily, with Plavix 300 mg loading dose ordered prior to admission - Aspirin 81 mg daily - Lipitor 40 mg at bedtime - Patient n.p.o., pending swallow evaluation - PT referral ordered, speech therapy referral ordered - Head of bed 30 degrees #Hypertension #Permissive hypertension Patient noted to have blood pressure of 195/107 in the ED on presentation and blood pressure of 170/114 on admission. Patient denies any history of hypertension. Patient states that normally he runs in the 130s/80s. This could potentially be hypertension secondary to CVA so that the brain can maintain perfusion. - For teleneurology consult, allow for permissive hypertension, keep blood pressure below 220/120 - Labetalol 10 mg IV every 6 hours if systolic blood pressure above 220 and diastolic blood pressure above 120 #Migraines Patient endorses a long history of migraines that started when he was a teenager. Patient states that he took Benadryl recently, which caused a really bad migraine. Patient denies any symptoms of migraine or headache during episodes of right upper extremity weakness with right-sided facial droop. - Follow-up with outpatient neurology for management of migraines #Palpitations Patient noted to have palpitations on initial examination prior to admission. Patient does endorse paroxysmal extra heartbeats, but does not see a clinical psychologist licensed and has never had any workup. - Telemetry box for constant monitoring of heart rhythm - Repeat EKG - Patient to follow-up outpatient DVT Prophylaxis: Heparin GI Prophylaxis: N/A Bowel: N/A Diet: NPO López: N/A Lines: Peripheral IV Antibiotics: N/A Code Status: FULL Reason for Hospitalization: CVA workup Other Barriers to Discharge: MRI head & echocardiogram Patient plan of care was discussed with the senior resident Dr. Umana (PGY-2) and attending physician Dr. Layo Valdez, PGY1 Attending Provider Attestation/Addendum Nicholas, Michelle Vasques DO, attest that I was physically present for the tavares portions of the service and evaluated the patient with the resident and I reviewed and discussed the case with the resident and agree with the resident's findings and plans of care as documented above Patient is a 68-year-old male with past medical history migraines who presented to the ED due to sudden onset right-sided weakness and right facial droop. He also endorsed having some numbness around the right side of his mouth. He reports that the symptoms began around 8 AM and resolved around 1 hour. Patient did not think much of his symptoms, but had a second episode of the similar symptoms again at around 10 AM. Patient states that he was unable to execute tasks with his right hand as he had intended and would also overshoot to target if he were reaching to grab an object. Patient states that he has history of migraines, but has never had such symptoms in the past. He denies any visual changes. Stroke alert was called from ED. CT head and neck were done showing no acute intracranial findings. Since patient is out of tPA window, no thrombolytics were recommended. Will admit patient to telemetry for further workup and medical management of possible CVA. Will order echocardiogram and MRI. Will follow-up with neurology recommendations. Will start patient on aspirin and statin at this time.
[2024-09-27] MEDS: CLOPIDOGREL BISULFATE 75 MG TABLET 300 MG PO (16:15)
[2024-09-27] MEDS: SODIUM CHLORIDE 0.9% 1000 ML 1,000 ML 75 ML IV (16:17)
[2024-09-27] MEDS: ASPIRIN EC 81 MG TABEC 162 MG PO (16:23)
--- NOTE | 2024-09-27 18:25 | PD.RESCONSUL ---
HPI Data of Consult Requesting Physician: Michelle Vasques DO Admitting Provider: Michelle Vasques DO Attending Provider: Michelle Vasques DO Primary Care Provider: Physician No Primary/Family Consult Narrative History of present illness: CC: right upper extremity weakness Patient is a 68-year-old male with a past medical history of hypertension, migraines who is medication non adherent presented to the emergency room with a chief complaint of right facial droop right upper arm weakness. Per patient, symptoms began at approximately 08:00 AM this morning with right upper extremity weakness. 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 Patient also described difficulty coordinating right hand. Complaining of lip numbness. Denied lower extremity weakness. Denied numbness. Patient denied chest pain. Denied shortness of breath. Denied confusion. History of migraines. Patient has blurry vision at baseline, but last week complained of loss of vision on right eye filed, mostly hemianopia. Denied recent sick contacts.Dened seizure likel activity ER Course: BP 195/107, HR 97, RR 18 T 98.8, spo2 97% RA WBC 7.7 hgb 15.3 hct 45.5 CMP: Na 141, K 3.6, Chloride 105, Carbon dioxide 23.4, BUN 7, Cr 0.7, Glucose 123 Mg 1.7 Troponin <0.02 EKG: no st elevation noted, QRS 121, QTc 464,possible left bundl branch block but not very remarkable, R wave progression NS 1 @ 60 mls/hr, Aspirin 162 mg PO X1 NIHSS 2, repeat NIHSS 2, PMH: same as above Surigcal History: titanium plate for previous fracture (unsure where) Medication: None Allergies: None Social History: remote history of 2 year smoking history; alcohol about 24 oz (about two beers) per every other week, denied illicit drug use Neuro consulted given concern for stroke cc:: cc: Michelle Vasques DO Review of Systems Review of Systems Narrative Review of Systems: General appearance: NO weight change, NO fatigue, NO weakness, NO fever, NO chills, NO night sweats, No cough Skin: NO rash, NO itching, NO sores, NO moles HEENT: NO Trauma, NO nausea, NO vomiting, YES visual changes within the past week, yes blurry vision (baseline), NO double vision, NO tinnitus, NO vertigo, NO ear discharge, NO rhinorrhea, NO stuffiness, NO sneezing, NO allergy, NO epistaxis. NO Hoarseness, NO sore throat, NO swollen neck. Cardiac: NO Palpitations, NO dyspnea on exertion, NO orthopnea, NO paroxysmal nocturnal dyspnea, NO edema Respiratory: NO Shortness of Breath, NO Wheezing, NO Cough, NO Sputum, NO hemoptysis GI:NO appetite, NO nausea, NO vomiting, NO dysphagia, NO changes in bowel frequency, NO stool color, NO diarrhea, NO constipation, NO hemetemesis, NO hemorrhoids, NO melena, NO hematechezia, NO abdominal pain, NO jaundice Renal: NO frequency, NO hesitancy, NO urgency, NO hematuria, NO nocturia, NO incontinence MSK: NO muscle weakness, NO gout, NO arthritis, NO muscle stiffness Neuro: Yes headaches, NO tremors, Yes weakness, NO paralysis, NO seizures, NO loss of consciousness, NO numbness. Hem: NO anemia, NO easy bruising/bleeding, NO petechiae, NO purpura Endo: NO heat/cold intolerance, NO excessive sweating, NO polyuria, NO polydipsia, NO polyphagia, NO thyroid problems, NO diabetes Pysch: NO mood, NO anxiety, NO depression Exam Vital Signs Temp Pulse Resp BP Pulse Ox O2 Del Method 97.2 F 83 17 145/108 H 97 Room Air 09/27/24 18:00 09/27/24 18:00 09/27/24 18:00 09/27/24 18:00 09/27/24 18:00 09/27/24 18:00 Narrative Exam General Appearance: Alert & Oriented X3, well-nourished male who is lying in bed in no acute distress HEENT: Skull symmetrical and atraumatic. Conjunctivae pin and moist. Pupils equal, round, reactive to light and accommodation (PERRL). External ear without lesion or discharge. Straight, nares patient, mucosa pink, no discharge. Cardio: Normal Rate and Rhythm with S1 and S2 heart sounds. No murmurs or extra heart sounds auscultated. No bruits on carotid auscultation. No peripheral edema or cyanosis. Lungs: Symmetric with good expansion. Chest and back non-tender. Breath sounds vesicular without crackles, wheezing or rhonchi Abdomen: Non-tender, Non-distended, Normal Reactive Bowel Sounds Neuro: Alert, cooperative, oriented to person, place, and time. Speech clear. CN grossly intact. Upper motor strength 5/5 and Lower motor strength 5/5. Sensation intact. right naso fold depression. Results Labs 09/28/24 04:49 09/28/24 04:49 Labs: Short CBC 09/27/24 Range/Units 13:22 WBC 7.7 (3.8-10.6) Thou/mm3 Hgb 15.3 (13.5-16.0) g/dL Hct 45.5 (41.0-53.0) % Plt Count 270 (140-440) Thou/mm3 BMP 09/27/24 13:22 Sodium 141 Potassium 3.6 Chloride 105 Carbon Dioxide 23.4 BUN 7 L Creatinine 0.7 Glucose 123 H Calcium 10.0 Cardiac Enzymes 09/27/24 Range/Units 13:22 Troponin I < 0.020 (0.0-0.045) ng/mL Liver Function 09/27/24 Range/Units 13:22 Total Bilirubin 1.0 (0.3-1.2) mg/dL AST 18 (0-34) U/L ALT 19 (10-49) U/L Alkaline Phosphatase 68 (46-116) U/L Albumin 4.5 (3.4-4.8) gm/dL Urine 09/27/24 Range/Units 14:06 Urine Color Colorless A (Lt Yel-Yel) Urine Clarity Clear (Clear/Hazy) Urine pH 7.0 (5.0-7.0) Ur Specific [place] 1.046 H (1.001-1.035) Urine Protein Negative (Neg - Trace) Urine Glucose (UA) Negative (Negative) Quality Measures Quality Measures stroke Suspected type of Stroke: Non Acute Last known well (date): 09/27/24 Last known well (time): 08:10 Tenecteplase given: Reason(s) Tenecteplase not given: Outside the time window not given Rehab services: PT evaluation ordered and Speech Language Pathology eval ordered VTE Prophylaxis: pharmaceutical Antithrombotic by day 2:: ordered Statin ordered: <75 y/o high intensity dose Anticoagulation ordered for A-fib or flutter (current or hx): not indicated Advance care planning discussed with:: patient Medications Home Medications and Allergies Allergies Allergy/AdvReac Type Severity Reaction Status Date / Time No Known Drug Allergies Allergy Verified 09/27/24 13:09 Visit Medications Acetaminophen (Acetaminophen 325 Mg Tablet) 650 mg PO Q6H PRN PRN Reason: Fever >101.5 or pain (1-3) Stop: 10/27/24 15:55 Aspirin (Aspirin Ec 81 Mg Tabec) 81 mg PO QDAY [facility] Stop: 10/28/24 08:59 Atorvastatin Calcium (Atorvastatin Calcium 20 Mg Tablet) 40 mg PO HS [facility] Stop: 10/27/24 20:59 Clopidogrel Bisulfate (Clopidogrel Bisulfate 75 Mg Tablet) 75 mg PO QDAY [facility] Stop: 10/28/24 08:59 Heparin Sodium (Porcine) (Heparin Sod Inj 5000 Unit/Ml Vial) 5,000 unit SC Q12HR [facility] Stop: 10/11/24 15:59 Last Admin: 09/27/24 16:25 Dose: Not Given Sodium Chloride (Ns) 1,000 mls @ 75 mls/hr IV .[id number] [facility] Stop: 09/28/24 05:24 Last Infusion: 09/27/24 18:15 Dose: 0 mls/hr Labetalol HCl (Labetalol Inj 5 Mg/Ml Vial 20 Ml) 10 mg IVP Q6H PRN PRN Reason: SBP > 220 or DBP > 120 Ondansetron HCl (Ondansetron Inj 2 Mg/Ml Inj 2 Ml) 4 mg IVP Q4HR PRN PRN Reason: NAUSEA OR VOMITING Stop: 10/27/24 13:17 Discontinued Medications Aspirin (Aspirin Ec 81 Mg Tabec) 162 mg PO X1 ONE Stop: 09/27/24 15:02 Last Admin: 09/27/24 16:08 Dose: Not Given Aspirin (Aspirin 325 Mg Tablet) 325 mg PO X1 ONE Stop: 09/27/24 16:02 Last Admin: 09/27/24 16:16 Dose: Not Given Aspirin (Aspirin Ec 81 Mg Tabec) 162 mg PO X1 ONE Stop: 09/27/24 16:13 Last Admin: 09/27/24 16:23 Dose: 162 mg Clopidogrel Bisulfate (Clopidogrel Bisulfate 75 Mg Tablet) 300 mg PO X1 ONE Stop: 09/27/24 15:02 Last Admin: 09/27/24 16:15 Dose: 300 mg Sodium Chloride (Ns) 1,000 mls @ 60 mls/hr IV Q10H [facility] Stop: 10/27/24 13:29 Last Infusion: 09/27/24 16:17 Dose: 0 mls/hr Assessment & Plan Plan Patient is a 68-year-old male with a past medical history of hypertension, migraines who is medication non adherent presented to the emergency room with a chief complaint of right facial droop right upper arm weakness. #Right upper extremity weakness #Lip Paresthesia #CVA rule out Patient complaining of upper extremity weakness with negative CT head and EKG/Troponin unremarkable consider stroke vs TIA vs hypertensive emergency as patient is non adherent to medication. Diagnostics: CT head negative Plan: -Plavix 75 mg once daily, Atorvastatin 80 mg PO HS , and Aspirin 81 mg once daily -MRI brain w/o contrast -echo w/ bubble study -TSH, Lipid panel, and A1c. -Neuro Checks -Aspiration Precautions, Head of bed 30 degrees -Bedside swallow screen and evaluation -Euglycemia (sliding scale if needed it) and avoid Hyperthermia (Tylenol) -Labetalol PRN, give if SBP >220 or DBP >110, allow for permissive hypertension -PT/Speech #Hypertensive Emergency #Hypertension #History of Migraines - The patient's plan was discussed with attending Dr. Sharee Coffey MD PGY2 Internal Medicine Attending Provider Attestation/Addendum I independently have reviewed the patient's chart and I agreed with resident's findings, assessment and plan of care. Impression: Right upper extremity weakness and paresthesia in the upper lip Hypertension/hypertensive urgency Chronic migraine Plan/recommendation Follow-up with MRI brain, echo with bubble study, keep him on Plavix and aspirin and statin Physical therapy Permissive blood pressure control
[2024-09-28] VITALS (9 sets, daily range): BP systolic 149–190; BP diastolic 87–114; PULSE 66–103; RESP 13–98; TEMP 35.9–36.2; O2SAT 96–99
[2024-09-28 06:05] LABS: Basophils # (Auto) 0.0 Thou/mm3 (0.0-0.2); Basophils % (Auto) 1 % (0-2.5); Eosinophils # (Auto) 0.2 Thou/mm3 (0.0-0.5); Eosinophils % (Auto) 3 % (0-10); Hematocrit 42.4 % (41.0-53.0); Hemoglobin 14.4 g/dL (13.5-16.0); Immature Granulocytes Auto 0.02 Thou/mm3 (0.00-0.00); Lymphocytes # (Auto) 2.0 Thou/mm3 (1.0-4.8); Lymphocytes % (Auto) 31 % (10-50); Mean Corpuscular HGB Conc 34.0 g/dl (31.0-37.0); Mean Corpuscular Hemoglobin 31.7 pg (25.0-35.0); Mean Corpuscular Volume 93 fL (80-100); Monocytes # (Auto) 0.5 Thou/mm3 (0.0-0.8); Monocytes % (Auto) 8 % (0-12); Neutrophils # (Auto) 3.7 Thou/mm3 (1.8-7.7); Neutrophils % (Auto) 58 % (37-80); Nucleated Red Blood Cell # 0.00 Thou/mm3 (0.00-0.00); Nucleated Red Blood Cell % 0 /100 WBC (0); Platelet Count 222 Thou/mm3 (140-440); RDW Standard Deviation 46.1 fL (35.1-43.9); Red Blood Count 4.54 Miln/mm3 (4.50-5.90); White Blood Count 6.5 Thou/mm3 (3.8-10.6)
[2024-09-28 06:17] LABS: INR 1.0 (0.9-1.3); Partial Thromboplastin Time 27.3 Seconds (22.0-36.0); Prothrombin Time 11.3 Seconds (9.0-12.2)
[2024-09-28 06:29] LABS: Alanine Aminotransferase 14 U/L (10-49); Albumin, Serum 4.0 gm/dL (3.4-4.8); Albumin/Globulin Ratio 1.9 (1.2-2.2); Alkaline Phosphatase 59 U/L (46-116); Anion Gap 10 (7-16); Aspartate Amino Transferase 17 U/L (0-34); BUN/Creatinine Ratio 9 Ratio (12-20); Bilirubin,Total 1.0 mg/dL (0.3-1.2); Blood Urea Nitrogen 6 mg/dL (9-23); Calcium 9.5 mg/dL (8.3-10.6); Calcium (Corrected) 9.5 mg/dL (8.5-10.1); Carbon Dioxide 25.7 mMol/L (20.0-31.0); Cardiac Risk Estimate 3.4 RATIO (4.0-6.7); Chloride 106 mMol/L (98-107); Cholesterol 191 mg/dL (132-200); Creatinine (Component) 0.7 mg/dL (0.6-1.3); Free T4 (Free Thyroxine) 1.14 ng/dL (0.89-1.76); Globulin 2.1 gm/dL (2.3-3.5); Glucose 103 mg/dL (74-106); HDL Cholesterol 56 mg/dL (40-60); LDL Cholesterol,Calculated 118 mg/dL (0-130); Magnesium 2.1 mg/dL (1.6-2.6); Osmolality,Calculated 280 (275-295); Potassium 3.6 mMol/L (3.4-5.1); Sodium 142 mMol/L (136-145); Thyroid Stimulating Hormone 4.75 uIU/mL (0.55-4.78); Total Protein 6.1 gm/dL (5.7-8.2); Triglycerides 87 mg/dL (30-150); eGFR > 60 See Note
[2024-09-28 06:34] LABS: Glucose Estimated Average 108 mg/dL (80-131); Hemoglobin A1C 5.4 % Hgb (4.8-6.0)
--- NOTE | 2024-09-28 09:17 | PC.SS ---
Follow up note: Echo pending. MRI positive. PT and Speech pending.
[2024-09-28] MEDS: CLOPIDOGREL BISULFATE 75 MG TABLET PO (09:49)
[2024-09-28] MEDS: ASPIRIN EC 81 MG TABEC PO (09:49)
--- NOTE | 2024-09-28 09:51 | ESPR_ITS ---
<Statement entered by Jenny Dozier MD - 09/29/24 07:35> pt is seen at bedside, states last night again he ahs an episode weakness with fine motor in the right hand, denies any visual disturbances, speech problem and weakness in the LE. MRI showed 18mm ischemic stroke in the L. Parietal lobe. Echo read is pending and final neuro recs are pending. Patient was seen and examined by me personally. I have directly supervised and reviewed documentation by the team resident and agree with its findings . ------- Plan of care was discussed with the attending, Dr. Esteban Dozier, PGY-2 Documentation for date of: 09/28/24 Subjective Subjective Interval history: Overnight events: Patient did note an episode of uncoordination with right upper extremity, which resolved. Patient was seen and examined at bedside. AM vitals and labs reviewed. Patient has no symptoms at this time. Right upper extremity symptoms have resolved. Discussed with the patient about the importance of finishing CVA workup. Patient states that he does not consciously feel pain with migraines. MRI brain with MRA 09/27 showed 18 mm acute infarct in left parietal lobe. Started losartan 25 mg daily given elevated blood pressure after completion of the 24 hours of permissive hypertension. PT evaluated patient, recommends no further PT at this time. Patient passed swallow evaluation by speech therapy. No dysphagia at this time. Continue aspirin 81 mg daily, continue Plavix 75 mg daily, continue Lipitor 40 mg nightly. Pending echocardiogram. Can discharge once read. Review of systems otherwise negative except for what is mentioned above. Exam Vital Signs Temp Pulse Resp BP Pulse Ox O2 Del Method 97.1 F 66 16 166/99 H 98 Room Air 09/28/24 08:00 09/28/24 08:00 09/28/24 08:00 09/28/24 08:00 09/28/24 08:00 09/28/24 08:00 Narrative Exam Physical Exam: General: Alert, no acute distress. Skin: Warm, dry, intact, no obvious rash. Head: Normocephalic, atraumatic. Eye: Normal conjunctiva, PERRL. Throat: Oral mucosa moist. No obvious lesions in oropharynx. Cardiovascular: Regular rate and rhythm, no murmur, +S1/S2. Respiratory: Lungs are clear to auscultation, respirations unlabored, no crackles, no wheezing. Gastrointestinal: Soft, nontender, non-distended. No guarding or rebound tenderness. Extremities: No edema, no cyanosis, no clubbing. 2+ radial pulse bilaterally, 2+ pedal pulse bilaterally. Neuro: No focal deficits observed. Conversant, moving all extremities. No overt cerebellar signs/incoordination. Psychiatric: Cooperative, appropriate affect. Objective Labs 09/28/24 04:49 09/28/24 04:49 Labs: Laboratory Results - last 24 hr 09/27/24 09/27/24 09/28/24 13:22 14:06 04:49 WBC 7.7 6.5 RBC 4.90 4.54 Hgb 15.3 14.4 Hct 45.5 42.4 MCV 93 93 MCH 31.2 31.7 MCHC 33.6 34.0 RDW Std Deviation 46.2 H 46.1 H Plt Count 270 222 D Neut % (Auto) 68 58 Lymph % (Auto) 25 31 [place] % (Auto) 5 8 Eos % (Auto) 1 3 Baso % (Auto) 1 1 Neut # (Auto) 5.2 3.7 Lymph # (Auto) 2.0 2.0 [place] # (Auto) 0.4 0.5 Eos # (Auto) 0.1 0.2 Baso # (Auto) 0.0 0.0 Immature Gran # (Auto) 0.02 H 0.02 H Absolute Nucleated RBC 0.00 0.00 Immature Gran % 0 0 Nucleated RBC % 0 0 PT 11.2 11.3 INR 1.0 1.0 APTT 27.1 27.3 Sodium 141 142 Potassium 3.6 3.6 Chloride 105 106 Carbon Dioxide 23.4 25.7 Anion Gap 13 10 BUN 7 L 6 L Creatinine 0.7 0.7 Estim Creat Clear Calc Not Performed. Not Performed. eGFR > 60 > 60 BUN/Creatinine Ratio 10 L 9 L Glucose [address] Glu mg/dL 108 Hemoglobin A1c 5.4 Calculated Osmolality 280 280 Calcium 10.0 9.5 Corrected Calcium 10.0 9.5 Magnesium 1.7 2.1 Total Bilirubin 1.0 1.0 AST 18 17 ALT 19 14 Alkaline Phosphatase 68 59 Troponin I < 0.020 B-Natriuretic Peptide 56 Total Protein 6.9 6.1 Albumin 4.5 4.0 D Globulin 2.4 2.1 L Albumin/Globulin Ratio 1.9 1.9 Triglycerides 87 Cholesterol 191 LDL Cholesterol, Calc 118 HDL Cholesterol 56 Cholesterol/HDL Ratio 3.4 L TSH 4.75 Free T4 1.14 Ur Collection Type Catheter Urine Color Colorless A Urine Clarity Clear Urine pH 7.0 Ur Specific [place] 1.046 H Urine Protein Negative Urine Glucose (UA) Negative Urine Ketones 1+ A Urine Blood Negative Urine Nitrite Negative Urine Bilirubin Negative Urine Urobilinogen (Auto) Negative Ur Leukocyte Esterase Negative Urine RBC 1 Urine WBC < 1 Ur Squamous Epith Cells 0 Urine Bacteria None Urine Opiates Screen Negative Urine Fentanyl Screen Negative Ur Barbiturates Screen Negative U Amphetamin/Meth Scrn Negative U Benzodiazepines Scrn Negative U Cocaine Metab Screen Negative U Marijuana (THC) Screen Negative Ethyl Alcohol < 3.0 Quality Measures Quality Measures stroke Suspected type of Stroke: Acute Ischemic Last known well (date): 09/27/24 Last known well (time): 08:10 Tenecteplase given: Reason(s) Tenecteplase not given: Outside the time window not given Rehab services: PT evaluation ordered and Speech Language Pathology eval ordered VTE Prophylaxis: pharmaceutical Antithrombotic by day 2:: ordered Statin ordered: <75 y/o high intensity dose Anticoagulation ordered for A-fib or flutter (current or hx): not indicated Advance care planning discussed with:: patient Assessment & Plan Assessment Current Active Medications: Generic Name Dose Route Start Last Admin Trade Name Freq PRN Reason Stop Dose Admin Acetaminophen 650 mg 09/27/24 15:56 Acetaminophen 325 Mg Tablet PO 10/27/24 15:55 Q6H PRN Fever >101.5 or pain (1-3) Aspirin 81 mg 09/28/24 09:00 09/28/24 09:49 Aspirin Ec 81 Mg Tabec PO 10/28/24 08:59 81 mg QDAY RYAN Administration Atorvastatin Calcium 40 mg 09/27/24 21:00 09/27/24 20:02 Atorvastatin Calcium 20 Mg Tablet PO 10/27/24 20:59 Not Given HS RYAN Clopidogrel Bisulfate 75 mg 09/28/24 09:00 09/28/24 09:49 Clopidogrel Bisulfate 75 Mg Tablet PO 10/28/24 08:59 75 mg QDAY RYAN Administration Heparin Sodium (Porcine) 5,000 unit 09/27/24 16:00 09/28/24 09:42 Heparin Sod Inj 5000 Unit/Ml Vial SC 10/11/24 15:59 Not Given Q12HR RYAN Labetalol HCl 10 mg 09/27/24 16:06 Labetalol Inj 5 Mg/Ml Vial 20 Ml IVP Q6H PRN SBP > 220 or DBP > 120 Ondansetron HCl 4 mg 09/27/24 13:18 Ondansetron Inj 2 Mg/Ml Inj 2 Ml IVP 10/27/24 13:17 Q4HR PRN NAUSEA OR VOMITING Plan Mr. Baez is a 68-year-old male with a past medical history of migraines who presented to [facility] ED on 09/27 with complaints of right-sided weakness and right facial droop. The patient was admitted for CVA workup. #Acute ischemic stroke, left parietal lobe #RUE weakness #Right sided facial droop Patient had weakness in right arm and right facial droop at 0800 and 1000 on 09/27. These episodes were accompanied by right-sided numbness around his lips. The first episode seemed to be more severe compared to the first, but the patient had resolution of symptoms within about an hour after the first episode. After the second episode, symptoms were less severe, but lasted for several hours. ED consulted teleneurology, who did CT head without contrast and CTA head and neck, which were negative for acute strokes and large vessel occlusions. The patient took 2 baby aspirin this morning, so ED gave patient 162 mg of aspirin for loading dose. - Neurology consulted, appreciate recommendations - MRI head without contrast ordered, which showed 18 mm acute infarct in left parietal lobe - Echocardiogram with bubble study ordered, pending - Plavix 75 mg daily, with Plavix 300 mg loading dose ordered prior to admission - Aspirin 81 mg daily - Lipitor 40 mg at bedtime - PT referral ordered, speech therapy referral ordered - Head of bed 30 degrees #Hypertension #Permissive hypertension Patient noted to have blood pressure of 195/107 in the ED on presentation and blood pressure of 170/114 on admission. Patient denies any history of hypertension. Patient states that normally he runs in the 130s/80s. This could potentially be hypertension secondary to CVA so that the brain can maintain perfusion. - For teleneurology consult, allow for permissive hypertension, keep blood pressure below 220/120 - Labetalol 10 mg IV every 6 hours if systolic blood pressure above 220 and diastolic blood pressure above 120 - Losartan 25 mg daily #Migraines Patient endorses a long history of migraines that started when he was a teenager. Patient states that he took Benadryl recently, which caused a really bad migraine. Patient denies any symptoms of migraine or headache during episodes of right upper extremity weakness with right-sided facial droop. Patient endorses that he has been able to control his nociception after a very bad migraine years ago. - Follow-up with outpatient neurology for management of migraines #Palpitations Patient noted to have palpitations on initial examination prior to admission. Patient does endorse paroxysmal extra heartbeats, but does not see a executive producer promos and has never had any workup. - Telemetry box for constant monitoring of heart rhythm - Repeat EKG - Patient to follow-up outpatient DVT Prophylaxis: Heparin GI Prophylaxis: N/A Bowel: N/A Diet: NPO López: N/A Lines: Peripheral IV Antibiotics: N/A Code Status: FULL Reason for Hospitalization: CVA workup Other Barriers to Discharge: MRI head & echocardiogram Patient plan of care was discussed with the senior resident Dr. Dozier (PGY-2) and attending physician Dr. Esteban Valdez, PGY1 Attending Provider Attestation/Addendum I attest that I was physically present for the evaluation, physical examination, lab and imaging review of the patient with the residents. I discussed the case with the residents and agree with the findings and plans of care as documented above. At bedside today, patient is states she is feeling better. His extremity weakness have been resolved. Continues to have right-sided facial droop which the patient states is improving. MRI brain showed 18 mm acute infarct in left parietal lobe. Discussed in length about the need of dual antiplatelet and statin. Patient remains skeptical about statin despite long discussion about benefits and side effects of statin, plans to discuss further with neurology in the evening. Physical therapy and speech therapy recommended no further need for PT and ST. Awaiting echocardiography with bubble study. Susana Orellana MD
--- NOTE | 2024-09-28 10:10 | ESPR_ITS ---
Documentation for date of: 09/28/24 Subjective Subjective Interval history: Patient is a 68-year-old male with a past medical history of hypertension, migraines who is medication non adherent who was admitted for upper extremity weakness and found to have acute infarct left parietal lobe. 09/28/2024: No overnight events, bedside patient refusing Atorvastatin. Patient is very ambivalent about his medication regimen. Extensive conversation/educatinon about need for Aspirin, Plavix, and Atorvastatin. Explained permissive hypertension for the first 24 hours after a stroke. Patient is alert, orientated X 3 and full capacity. Patient has patient autonomy to decide if he wants to take his medication. Risk and benefit explained. Improved headache. Improved upper extremity weakness. Pending Echo read. Exam Vital Signs Temp Pulse Resp BP Pulse Ox O2 Del Method 97.1 F 66 16 166/99 H 98 Room Air 09/28/24 08:00 09/28/24 08:00 09/28/24 08:00 09/28/24 08:00 09/28/24 08:00 09/28/24 08:00 Narrative Exam General Appearance: Alert & Oriented X3, well-nourished male who is lying in bed in no acute distress HEENT: Skull symmetrical and atraumatic. Conjunctivae pin and moist. Pupils equal, round, reactive to light and accommodation (PERRL). External ear without lesion or discharge. Straight, nares patient, mucosa pink, no discharge. Cardio: Normal Rate and Rhythm with S1 and S2 heart sounds. No murmurs or extra heart sounds auscultated. No bruits on carotid auscultation. No peripheral edema or cyanosis. Lungs: Symmetric with good expansion. Chest and back non-tender. Breath sounds vesicular without crackles, wheezing or rhonchi Abdomen: Non-tender, Non-distended, Normal Reactive Bowel Sounds Neuro: Alert, cooperative, oriented to person, place, and time. Speech clear. CN grossly intact. Upper motor strength 5/5 and Lower motor strength 5/5. Sensation intact. right naso fold depression, improved. Objective Labs 09/29/24 05:49 09/29/24 05:49 Labs: Laboratory Results - last 24 hr 09/27/24 09/27/24 09/28/24 13:22 14:06 04:49 WBC 7.7 6.5 RBC 4.90 4.54 Hgb 15.3 14.4 Hct 45.5 42.4 MCV 93 93 MCH 31.2 31.7 MCHC 33.6 34.0 RDW Std Deviation 46.2 H 46.1 H Plt Count 270 222 D Neut % (Auto) 68 58 Lymph % (Auto) 25 31 [place] % (Auto) 5 8 Eos % (Auto) 1 3 Baso % (Auto) 1 1 Neut # (Auto) 5.2 3.7 Lymph # (Auto) 2.0 2.0 [place] # (Auto) 0.4 0.5 Eos # (Auto) 0.1 0.2 Baso # (Auto) 0.0 0.0 Immature Gran # (Auto) 0.02 H 0.02 H Absolute Nucleated RBC 0.00 0.00 Immature Gran % 0 0 Nucleated RBC % 0 0 PT 11.2 11.3 INR 1.0 1.0 APTT 27.1 27.3 Sodium 141 142 Potassium 3.6 3.6 Chloride 105 106 Carbon Dioxide 23.4 25.7 Anion Gap 13 10 BUN 7 L 6 L Creatinine 0.7 0.7 Estim Creat Clear Calc Not Performed. Not Performed. eGFR > 60 > 60 BUN/Creatinine Ratio 10 L 9 L Glucose [address] Glu mg/dL 108 Hemoglobin A1c 5.4 Calculated Osmolality 280 280 Calcium 10.0 9.5 Corrected Calcium 10.0 9.5 Magnesium 1.7 2.1 Total Bilirubin 1.0 1.0 AST 18 17 ALT 19 14 Alkaline Phosphatase 68 59 Troponin I < 0.020 B-Natriuretic Peptide 56 Total Protein 6.9 6.1 Albumin 4.5 4.0 D Globulin 2.4 2.1 L Albumin/Globulin Ratio 1.9 1.9 Triglycerides 87 Cholesterol 191 LDL Cholesterol, Calc 118 HDL Cholesterol 56 Cholesterol/HDL Ratio 3.4 L TSH 4.75 Free T4 1.14 Ur Collection Type Catheter Urine Color Colorless A Urine Clarity Clear Urine pH 7.0 Ur Specific [place] 1.046 H Urine Protein Negative Urine Glucose (UA) Negative Urine Ketones 1+ A Urine Blood Negative Urine Nitrite Negative Urine Bilirubin Negative Urine Urobilinogen (Auto) Negative Ur Leukocyte Esterase Negative Urine RBC 1 Urine WBC < 1 Ur Squamous Epith Cells 0 Urine Bacteria None Urine Opiates Screen Negative Urine Fentanyl Screen Negative Ur Barbiturates Screen Negative U Amphetamin/Meth Scrn Negative U Benzodiazepines Scrn Negative U Cocaine Metab Screen Negative U Marijuana (THC) Screen Negative Ethyl Alcohol < 3.0 Quality Measures Quality Measures stroke Suspected type of Stroke: Non Acute Last known well (date): 09/27/24 Last known well (time): 08:10 Tenecteplase given: Reason(s) Tenecteplase not given: Outside the time window not given Rehab services: PT evaluation ordered and Speech Language Pathology eval ordered VTE Prophylaxis: pharmaceutical Antithrombotic by day 2:: ordered Statin ordered: <75 y/o high intensity dose Anticoagulation ordered for A-fib or flutter (current or hx): not indicated Advance care planning discussed with:: patient Assessment & Plan Assessment Current Active Medications: Generic Name Dose Route Start Last Admin Trade Name Freq PRN Reason Stop Dose Admin Acetaminophen 650 mg 09/27/24 15:56 Acetaminophen 325 Mg Tablet PO 10/27/24 15:55 Q6H PRN Fever >101.5 or pain (1-3) Aspirin 81 mg 09/28/24 09:00 09/28/24 09:49 Aspirin Ec 81 Mg Tabec PO 10/28/24 08:59 81 mg QDAY RYAN Administration Atorvastatin Calcium 40 mg 09/27/24 21:00 09/27/24 20:02 Atorvastatin Calcium 20 Mg Tablet PO 10/27/24 20:59 Not Given HS RYAN Clopidogrel Bisulfate 75 mg 09/28/24 09:00 09/28/24 09:49 Clopidogrel Bisulfate 75 Mg Tablet PO 10/28/24 08:59 75 mg QDAY RYAN Administration Heparin Sodium (Porcine) 5,000 unit 09/27/24 16:00 09/28/24 09:42 Heparin Sod Inj 5000 Unit/Ml Vial SC 10/11/24 15:59 Not Given Q12HR RYAN Labetalol HCl 10 mg 09/27/24 16:06 Labetalol Inj 5 Mg/Ml Vial 20 Ml IVP Q6H PRN SBP > 220 or DBP > 120 Ondansetron HCl 4 mg 09/27/24 13:18 Ondansetron Inj 2 Mg/Ml Inj 2 Ml IVP 10/27/24 13:17 Q4HR PRN NAUSEA OR VOMITING Plan Patient is a 68-year-old male with a past medical history of hypertension, migraines who is medication non adherent presented to the emergency room with a chief complaint of right facial droop right upper arm weakness. #Right upper extremity weakness #Lip Paresthesia #CVA rule out Patient complaining of upper extremity weakness with negative CT head and EKG/Troponin unremarkable consider stroke vs TIA vs hypertensive emergency as patient is non adherent to medication. Diagnostics: MRI: 18 mm acute infarct left parietal lobe. A1c 5.[address] head negative Plan: -Plavix 75 mg once daily, Atorvastatin 80 mg PO HS , and Aspirin 81 mg once daily -echo w/ bubble study -Neuro Checks -Aspiration Precautions, Head of bed 30 degrees -Euglycemia (sliding scale if needed it) and avoid Hyperthermia (Tylenol) -out of permissive hypertension, consider SILAS/ARBs if no BRANDON. -PT/Speech #Hypertensive Emergency #Hypertension #History of Migraines - The patient's plan was discussed with attending Dr. Sharee Coffey MD PGY2 Internal Medicine Attending Provider Attestation/Addendum I personally have seen and examined the patient at the bedside and agreed with the resident's findings, assessment and plan of care. Impression: Acute ischemic CVA without any residual neurological deficit, secondary to small vessel disease Hypertension, hyperlipidemia Plan/recommendations with aspirin, Plavix and statin, blood pressure control as at home. Follow-up with echocardiogram report Noted patient is anxious to be discharged home
--- NOTE | 2024-09-28 12:03 | PC.SS ---
SS met with patient regarding his d/c plan. Pt is alert/oriented. Pt was admitted for CVA Workup. Pt confirmed demographic and contact information is correct on facesheet. Pt resides with . Pt ambulates independently without assistance or DME. Pt is ok with all ADLs. Patient?s pharmacy [facility] choice is [facility] [address]. Pt named his , Mari Baez medical decision maker if he is unable. Patient?s choice is to return home upon d/c. Pt does not have an advance directive, SS offered, and pt declined. Pt states not diabetic and is not on dialysis. will provide transportation home. D/C plan: Return home Next of Kin: Mari Dickey, , phone# [phone] [facility] [place] Address: Correct on facesheet
--- NOTE | 2024-09-28 14:27 | PC.PT ---
PT eval only. Patient is I with transfers and ambulation without AD.
--- NOTE | 2024-09-28 15:52 | PC.NURSE ---
Patient is receptive to starting losartan. Educated patient throughout the day about heparin, losartan, and atorvastatin. Patient states he has never had high blood pressure and it is in the 120s with highest being in the 130s. He states if his BP continues to be high at home then he will consider taking medication to control BP. Notified patient about his BP running high throughout the past 24 hours and he states the hospital is stressing him out and causing his BP to run high. Educated patient on stroke risk factors and signs and symptoms, as well as the benefits of BP and stroke meds.
--- NOTE | 2024-09-28 16:00 | PC.NURSE ---
Pt was worked up during 1600 vital signs talking about medications he does not want to take and how he can manage his health without medications at home, pt does not believe his blood pressure is really 190/114 as he was moving and talking during blood pressure being taken. Pt requesting for his blood pressure to be taken later when he is calm and continues to refuse blood pressure medication. MD aware of pt refusing medications.
[2024-09-29] VITALS: BP 149/94; PULSE 73; PULSE 81; RESP 16; TEMP 36.2; O2SAT 97
[2024-09-29 04:00] VITALS: PULSE 65; PULSE 69; RESP 19; O2SAT 97
[2024-09-29 06:10] LABS: Basophils # (Auto) 0.0 Thou/mm3 (0.0-0.2); Basophils % (Auto) 1 % (0-2.5); Eosinophils # (Auto) 0.2 Thou/mm3 (0.0-0.5); Eosinophils % (Auto) 2 % (0-10); Hematocrit 43.5 % (41.0-53.0); Hemoglobin 14.6 g/dL (13.5-16.0); Immature Granulocytes Auto 0.01 Thou/mm3 (0.00-0.00); Lymphocytes # (Auto) 1.6 Thou/mm3 (1.0-4.8); Lymphocytes % (Auto) 23 % (10-50); Mean Corpuscular HGB Conc 33.6 g/dl (31.0-37.0); Mean Corpuscular Hemoglobin 31.3 pg (25.0-35.0); Mean Corpuscular Volume 93 fL (80-100); Monocytes # (Auto) 0.6 Thou/mm3 (0.0-0.8); Monocytes % (Auto) 8 % (0-12); Neutrophils # (Auto) 4.6 Thou/mm3 (1.8-7.7); Neutrophils % (Auto) 66 % (37-80); Nucleated Red Blood Cell # 0.00 Thou/mm3 (0.00-0.00); Nucleated Red Blood Cell % 0 /100 WBC (0); Platelet Count 215 Thou/mm3 (140-440); RDW Standard Deviation 46.1 fL (35.1-43.9); Red Blood Count 4.66 Miln/mm3 (4.50-5.90); White Blood Count 7.0 Thou/mm3 (3.8-10.6)
[2024-09-29 06:33] LABS: Alanine Aminotransferase 12 U/L (10-49); Albumin, Serum 3.9 gm/dL (3.4-4.8); Albumin/Globulin Ratio 1.9 (1.2-2.2); Alkaline Phosphatase 59 U/L (46-116); Anion Gap 10 (7-16); Aspartate Amino Transferase 15 U/L (0-34); BUN/Creatinine Ratio 10 Ratio (12-20); Bilirubin,Total 0.9 mg/dL (0.3-1.2); Blood Urea Nitrogen 8 mg/dL (9-23); Calcium 9.5 mg/dL (8.3-10.6); Calcium (Corrected) 9.6 mg/dL (8.5-10.1); Carbon Dioxide 25.3 mMol/L (20.0-31.0); Chloride 105 mMol/L (98-107); Creatinine (Component) 0.8 mg/dL (0.6-1.3); Globulin 2.1 gm/dL (2.3-3.5); Glucose 104 mg/dL (74-106); Magnesium 1.8 mg/dL (1.6-2.6); Osmolality,Calculated 277 (275-295); Potassium 3.8 mMol/L (3.4-5.1); Sodium 140 mMol/L (136-145); Total Protein 6.0 gm/dL (5.7-8.2); eGFR > 60 See Note
[2024-09-29 07:14] VITALS: PULSE 79; RESP 18; RESP 96
[2024-09-29 08:00] VITALS: BP 170/105; PULSE 87; PULSE 90; RESP 20; TEMP 36.1; O2SAT 95
--- NOTE | 2024-09-29 08:07 | PC.NURSE ---
Patient continues to refuse BP medication, educated on important of managing BP and risks for stroke and HTN.
[2024-09-29] MEDS: CLOPIDOGREL BISULFATE 75 MG TABLET PO (08:11)
[2024-09-29] MEDS: ASPIRIN EC 81 MG TABEC PO (08:11)
--- NOTE | 2024-09-29 09:59 | ESDS_ITS ---
Planned Discharge Date 09/29/24 DS: Providers Provider Date of admission: 09/27/24 15:48 Primary care physician: Physician No Primary/Family Admitting Provider: Michelle Vasques DO Attending Provider on Admission: Susana Orellana MD Consults: 09/27/24 13:18 Consult to Neurology / Tele-Neurology Routine Comment: Consulting Provider: [facility] 09/27/24 15:59 Consult to Neurology / Tele-Neurology Routine Comment: CVA workup Consulting Provider: Yair Tolliver Referral Physical Therapy Routine Comment: CVA workup Physician Instructions: Referral Speech Therapy Routine Comment: CVA workup Attending Provider on DC: Susana Orellana MD Discharging Provider: RESIDENT Fernando Anticipated date of discharge: 09/29/24 DS: Diagnosis Problem List Completed Was Problem List Reviewed/Reconciled?: Yes Hospital Course Hospital Course Hospital course: Reason for hospitalization:?Acute ischemic stroke, left parietal lobe Summary: This is a 68 year old male with a history of migraines who presented to [facility] on 09/27 with complaints of right-sided weakness and right facial droop. The p atient was admitted for CVA workup. The patient's initial symptoms began around 8 AM on 09/27 with acute onset right-sided weakness in his upper extremity, right facial droop, and right sided lip numbness. The patient's symptoms initially improved, but then recurred around 10 or 10:30 AM 09/27. The patient then decided to seek care at [facility] after symptoms were persisting. Patient was noted to have a blood pressure of 195/107 on arrival to the ED. Teleneurology was consulted. CT head negative for acute bleed and CTA negative for large vessel occlusion. However, the patient was outside the 4.5-hour window for tPA/TNK. Patient was admitted for further CVA workup and started on DAPT therapy. MRI head showed an infarct in the left parietal lobe. Echocardiogram was done, which showed normal LV function and size, grade 1 diastolic dysfunction, estimated EF 55 to 60%, and a mildly dilated left atrium. Physical therapy and speech therapy cleared the patient to discharge back home. On 09/29, the patient had full resolution of his symptoms and discharged. He was advised to continue DAPT therapy for 21 days, start atorvastatin 80 mg nightly, and start losartan 25 mg daily. It was highly encouraged that the patient follow-up outpatient with a PCP regarding his hypertension, a neurologist regarding his acute ischemic stroke and migraines, and a alignment technician regarding his dilated left atrium and Holter monitor. Imaging: CT head : Negative for acute hemorrhage, mass effect or midline shift CTA head/neck : No significant neck arterial stenoses, no cerebral large vessel arterial occlusion or thrombus MRI brain with MRA : 18 mm acute infarct left parietal lobe Discharge Recommendations: - Follow up with PCP within 1 week of discharge - Continue rest of medications as previously prescribed - Return to the ED or call EMS if symptoms return and/or worsen - You have been prescribed aspirin and clopidogrel for DAPT therapy, please take these two medications for a total of 21 days - Please follow up with outpatient neurology regarding ischemic stroke and migraines - Please follow up with outpatient cardiology regarding dilated left atrium and Holter monitor - You have been prescribed a blood thinner, which can cause bleeding so please be careful with falls, if you have an injury or fall please immediately go to the ED - Please monitor your blood pressure at home regularly If you don't have a PCP, you can make an appointment at the [facility]: [address] [place] [address] Hospital Diagnoses: #Acute ischemic stroke, left parietal lobe #RUE weakness #Right sided facial droop #Right lip paresthesia #Hypertension #Hypertensive emergency #Migraines #Palpitations #Dilated left atrium Patient plan of care was discussed with attending physician Dr. Esteban Valdez, PGY-1 Status at Discharge Functional status at discharge: independent ambulation Overall status at discharge: patient is back to baseline Time Spent with Patient Time attestation: Total time spent providing and/or coordinating discharge services: 36 min Time spent: Greater than 30 minutes Exam Vital Signs Temp Pulse Resp BP Pulse Ox O2 Del Method 96.9 F 90 20 170/105 H 95 Room Air 09/29/24 08:00 09/29/24 08:00 09/29/24 08:00 09/29/24 08:00 09/29/24 08:00 09/29/24 08:00 Narrative Exam Physical Exam: General: Alert, no acute distress. Skin: Warm, dry, intact, no obvious rash. Head: Normocephalic, atraumatic. Eye: Normal conjunctiva, PERRL. Throat: Oral mucosa moist. No obvious lesions in oropharynx. Cardiovascular: Regular rate and rhythm, no murmur, +S1/S2. Respiratory: Lungs are clear to auscultation, respirations unlabored, no crackles, no wheezing. Gastrointestinal: Soft, nontender, non-distended. No guarding or rebound tenderness. Extremities: No edema, no cyanosis, no clubbing. 2+ radial pulse bilaterally, 2+ pedal pulse bilaterally. Neuro: No focal deficits observed. Conversant, moving all extremities. No overt cerebellar signs/incoordination. Psychiatric: Cooperative, appropriate affect. Discharge Plan Plan Patient Disposition: HOME (Self Care) Patient condition on transfer: Stable Care Plan Goals: -Follow up with PCP within 1 week of discharge, if you do not have a primary care physician you can come see us at the [facility] by calling [phone] -Please follow up with Neurologist outpatient with in 2 weeks and please also follow up with alignment technician outpatient we recommend Holter Monitoring. -You have been prescribed a blood thinner, which can cause bleeding so please be careful with falls, if you have an injury or fall please immediately go to the ED -please monitor your blood pressure at home regularly -Return to the ED or call EMS if symptoms return and/or worsen Prescriptions/Referrals Prescriptions/Med Rec: New aspirin 81 mg Tablet,Delayed Release (Dr/Ec) 81 mg PO QDAY Qty: 30 0RF atorvastatin 20 mg Tablet 80 mg PO HS 30 Days Qty: 120 0RF clopidogrel 75 mg Tablet 75 mg PO QDAY 30 Days Qty: 30 0RF losartan 25 mg Tablet 25 mg PO QDAY 30 Days Qty: 30 0RF Referrals: No Primary/Family,Physician [Primary Care Provider] - Yair Tolliver MD [Physician] - Patient/Caregiver Discharge Instructions Discharge Activity: activity as tolerated Education Materials: Hypertension Stroke Link, What Is High Blood Pressure?, Hypertension Dc, Discharge Instructions for Stroke, Risk Factors for Stroke, Stroke Self Care After Print Language: Setswana Stand Alone Forms: Oksana Award Info., Patient Portal Info Letter Discharge Order Discharge Orders: Discharge (Routine); Ordered 09/29/24 Ordered By: Jenny Dozier Quality Discharge Quality Measures VTE prophylaxis Attestestation Attestation I attest that I was physically present for the evaluation, physical examination, lab and imaging review of the patient with the residents. I discussed the case with the residents and agree with the findings and plans of care as documented above. Susana Orellana MD
[2024-09-29 12:00] VITALS: BP 150/100; PULSE 102; PULSE 99; RESP 17; TEMP 36.1; O2SAT 95
--- NOTE | 2024-09-29 14:32 | PD.RESPRO ---
Documentation for date of: 09/29/24 Subjective Subjective Interval history: Patient is a 68-year-old male with a past medical history of hypertension, migraines who is medication non adherent who was admitted for upper extremity weakness and found to have acute infarct left parietal lobe. 09/28/2024: No overnight events, bedside patient refusing Atorvastatin. Patient is very ambivalent about his medication regimen. Extensive conversation/educatinon about need for Aspirin, Plavix, and Atorvastatin. Explained permissive hypertension for the first 24 hours after a stroke. Patient is alert, orientated X 3 and full capacity. Patient has patient autonomy to decide if he wants to take his medication. Risk and benefit explained. Improved headache. Improved upper extremity weakness. 09/29/2024: Overnight patient continues to refuse Atorvastatin and refuses Losartan despite elevated blood pressure. Patient advised to follow up outpatinet setting with PCP with BP and Lipid panel. Patinet will be discharge today. Echo read,no vegetation, with normal EF. Exam Vital Signs Temp Pulse Resp BP Pulse Ox O2 Del Method 96.9 F 99 17 150/100 H 95 Room Air 09/29/24 12:00 09/29/24 12:00 09/29/24 12:00 09/29/24 12:00 09/29/24 12:00 09/29/24 08:00 Narrative Exam General Appearance: Alert & Oriented X3, well-nourished male who is lying in bed in no acute distress HEENT: Skull symmetrical and atraumatic. Conjunctivae pin and moist. Pupils equal, round, reactive to light and accommodation (PERRL). External ear without lesion or discharge. Straight, nares patient, mucosa pink, no discharge. Cardio: Normal Rate and Rhythm with S1 and S2 heart sounds. No murmurs or extra heart sounds auscultated. No bruits on carotid auscultation. No peripheral edema or cyanosis. Lungs: Symmetric with good expansion. Chest and back non-tender. Breath sounds vesicular without crackles, wheezing or rhonchi Abdomen: Non-tender, Non-distended, Normal Reactive Bowel Sounds Neuro: Alert, cooperative, oriented to person, place, and time. Speech clear. CN grossly intact. Upper motor strength 5/5 and Lower motor strength 5/5. Sensation intact. right naso fold depression, improved. Objective Labs 09/29/24 05:49 09/29/24 05:49 Labs: Laboratory Results - last 24 hr 09/29/24 05:49 WBC 7.0 RBC 4.66 Hgb 14.6 Hct 43.5 MCV 93 MCH 31.3 MCHC 33.6 RDW Std Deviation 46.1 H Plt Count 215 Neut % (Auto) 66 Lymph % (Auto) 23 [place] % (Auto) 8 Eos % (Auto) 2 Baso % (Auto) 1 Neut # (Auto) 4.6 Lymph # (Auto) 1.6 [place] # (Auto) 0.6 Eos # (Auto) 0.2 Baso # (Auto) 0.0 Immature Gran # (Auto) 0.01 H Absolute Nucleated RBC 0.00 Immature Gran % 0 Nucleated RBC % 0 Sodium 140 Potassium 3.8 Chloride 105 Carbon Dioxide 25.3 Anion Gap 10 BUN 8 L Creatinine 0.8 Estim Creat Clear Calc Not Performed. eGFR > 60 BUN/Creatinine Ratio 10 L Glucose 104 Calculated Osmolality 277 Calcium 9.5 Corrected Calcium 9.6 Magnesium 1.8 Total Bilirubin 0.9 AST 15 ALT 12 Alkaline Phosphatase 59 Total Protein 6.0 Albumin 3.9 Globulin 2.1 L Albumin/Globulin Ratio 1.9 Quality Measures Quality Measures stroke Suspected type of Stroke: Acute Ischemic Last known well (date): 09/27/24 Last known well (time): 08:10 Tenecteplase given: Reason(s) Tenecteplase not given: Outside the time window not given Rehab services: PT evaluation ordered and Speech Language Pathology eval ordered VTE Prophylaxis: pharmaceutical Antithrombotic by day 2:: ordered Statin ordered: <75 y/o high intensity dose (Patient has refused medication ) Anticoagulation ordered for A-fib or flutter (current or hx): not indicated Advance care planning discussed with:: patient Assessment & Plan Plan Patient is a 68-year-old male with a past medical history of hypertension, migraines who is medication non adherent presented to the emergency room with a chief complaint of right facial droop right upper arm weakness. #Right upper extremity weakness #Lip Paresthesia #CVA rule out Patient complaining of upper extremity weakness with negative CT head and EKG/Troponin unremarkable consider stroke vs TIA vs hypertensive emergency as patient is non adherent to medication. Diagnostics: MRI: 18 mm acute infarct left parietal lobe. A1c 5.[address] head negative Plan: -Plavix 75 mg once daily, Atorvastatin 80 mg PO HS , and Aspirin 81 mg once daily -Neuro Checks -Aspiration Precautions, Head of bed 30 degrees -Euglycemia (sliding scale if needed it) and avoid Hyperthermia (Tylenol) -out of permissive hypertension, consider SILAS/ARBs if no BRANDON. -PT/Speech #Hypertensive Emergency #Hypertension #History of Migraines - The patient's plan was discussed with attending Dr. Sharee Coffey MD PGY2 Internal Medicine Attending Provider Attestation/Addendum I personally have seen and examined the patient at the bedside and agree with resident's findings, assessment and plan of care. Impression: Acute ischemic CVA likely from small vessel disease Hypertension hyperlipidemia Plan/recommendations Continue with aspirin, Plavix and statin. Echocardiogram: Findings were reviewed looked normal Patient is stable for discharge home and I will see him back in 2 weeks
== END 2024-09-29 12:30 | disposition home or self-care (01) | DRG 65 ==
LOC: SERX 15:45 → SERHOLD 16:01 → S2NX 17:48
PROVIDERS: Admitting Provider Internal Medicine; Emergency Provider Family Medicine; Visit Provider Student in an Organized Health Care Education/Training Program
DX: I63.9 Cerebral infarction, unspecified (principal); G81.91 Hemiplegia, unspecified affecting right dominant side; R53.1 Weakness; R29.810 Facial weakness; E78.5 Hyperlipidemia, unspecified; G43.909 Migraine, unspecified, not intractable, without status migrainosus; I10 Essential (primary) hypertension; R00.2 Palpitations; Z87.891 Personal history of nicotine dependence; Z79.02 Long term (current) use of antithrombotics/antiplatelets; R29.702 NIHSS score 2; Z79.82 Long term (current) use of aspirin; Z79.899 Other long term (current) drug therapy
CPT/HCPCS: 36415; 70450; 70496; 70498; 70544; 80053; 80061; 80307; 80320; 81001; 83036; 83735; 83880; 84439; 84443; 84484; 85025; 85610; 85730; 87086; 92610; 93005; 93306; 96360; 96361; 97161; 99284; A4649; J7030; Q9967; A9270; G0480